=== PATIENT | female | born 1995 | race Two or more races ===

== ENCOUNTER 2021-05-16 12:21 | Emergency (ER) | payer OTHER ==
[~2021-05-16] VITALS: Ht 172.7 cm; Wt 74.8 kg
[2021-05-16] MEDS ORDERED: NORFLEX100MG PO (16:00)
[2021-05-16] MEDS ORDERED: NAPROXEN SODIU375 M1 PO (16:01)
== END 2021-05-16 17:48 | disposition home or self-care (01) ==
LOC: ER 12:21
DX: M94.0 Chondrocostal junction syndrome [Tietze] (principal)

== ENCOUNTER 2023-03-27 08:24 | Outpatient (CLI) | payer OTHER ==
[~2023-03-27 08:24] MED LIST: NAPROXEN SODIU375 M1 PO; NORFLEX100MG PO
== END 2023-03-27 09:00 | disposition home or self-care (01) ==
LOC: SONOGRAMA 08:24
PROVIDERS: ATTEND Surgery
DX: N60.11 Diffuse cystic mastopathy of right breast (principal)

== ENCOUNTER 2024-08-30 08:32 | Outpatient (CLI) | payer OTHER | END 2024-08-30 09:10 | disposition home or self-care (01) | LOC: MAMO-SONO 08:32 | PROVIDERS: ATTEND Legal Medicine | DX: N64.4 Mastodynia (principal) ==